=== PATIENT | male | born 1945 | race Caucasian/White ===

== ENCOUNTER 2020-11-29 18:15 | Emergency (ER) | payer MEDICARE, OTHER ==
[~2020-11-29] VITALS: Ht 175.3 cm; Wt 99.4 kg
--- NOTE | 2020-11-29 19:23 | PHYS DOC ---
Past History Past Medical History: CHF, Renal Failure Past Surgical History: Other Alcohol Use: None Adult General Chief Complaint Chief Complaint: MECHANICAL FALL HPI HPI Patient is a 75-year-old male with a past medical history significant for renal failure and right-sided renal transplant with 1 kidney, CAD, diabetes and is wheelchair-bound who presents to the emergency department with a chief complaint of fall from his wheelchair. States he was leaning forward this morning at about 8 AM to pick something up and fell forward out of his wheelchair on his left side. Complains of left sided chest wall pain, 6 out of 10, sharp in nature and left flank pain about the same. States he has some various sites of bruising along his arm and on his back but usually has bruising as he bruises easily. Denies any headache, changes in vision, neck pain, chest pain, shortness of breath, nausea, vomiting, dysuria, hematuria, blood in the stool. States he is able to stand, which is his baseline and walk short distances with help. Review of Systems Review of Systems Review of systems otherwise unremarkable except noted in HPI Allergies Allergies Allergies Coded Allergies Type Severity Reaction Last Updated Verified No Known Drug Allergies 11/29/20 No Physical Exam Physical Exam Constitutional: Well developed, well nourished, no acute distress, non-toxic appearance. [] HENT: Normocephalic, atraumatic, oropharynx moist, Eyes: PERRLA, EOMI, conjunctiva normal, no discharge. [] Neck: Normal range of motion, no tenderness, supple, no stridor. [] Cardiovascular: Sinus bradycardia Lungs & Thorax: Bilateral breath sounds clear to auscultation [] Abdomen: soft, left upper quadrant tenderness, no masses, no pulsatile masses. [] Skin: Warm, dry, bruising/contusions in multiple areas including left forearm, right forearm, bilateral hands, left mid back Back: No tenderness, no CVA tenderness. [] Extremities: Patient has bilateral lower extremity edema Neurologic: Alert and oriented X 3, normal motor function, normal sensory function, no focal deficits noted. [] Psychologic: Affect normal, judgement normal, mood normal. [] Current Patient Data Vital Signs Vital Signs Date Time Temp Pulse Resp B/P (MAP) Pulse Ox O2 Delivery O2 Flow Rate FiO2 11/29/20 19:06 97.7 56 16 163/49 (87) 95 Room Air EKG EKG [] Radiology/Procedures Radiology/Procedures [] FINDINGS: No focal parenchymal lesion or hemorrhage is identified. There is no midline shift or sulcal effacement. No acute vascular territory infarction is identified. Eng-white distinction is preserved. The ventricular system is within normal limits without compression hydrocephalus. The basal cisterns are well maintained. The visualized portions of the paranasal sinuses and mastoid air cells are well- pneumatized. No acute fractures. IMPRESSION: No acute intracranial abnormality. Electronically signed by: Mino Fagan MD (11/29/2020 8:05 PM) [facility] Rashid Chest: No evidence for major vascular injury on this unenhanced exam. Multifocal calcific atherosclerosis with coronary artery involvement. Left chest wall Port-A-Cath terminating at the upper right atrium. No enlarged mediastinal or hilar lymph nodes. No retrosternal hematoma or pericardial effusion. No pneumothorax or pleural effusion. No suspicious pulmonary nodule. Patent central airways. AV fistula partially imaged on the right upper extremity. Gynecomastia. No axillary adenopathy. Acute nondisplaced fractures of the left 9th and 10th ribs. Intact sternum. No acute fracture of the thoracic spine. Intact dorsal fusion construct spanning T10-T11. CT Abdomen/Pelvis: No acute abnormality of the liver or spleen. Mild enlargement of the spleen at 1 4.6 cm AP. Fatty infiltration of the pancreas. No adrenal gland mass. Haziness along the gallbladder wall favored on account of motion. Nondilated biliary tree. Atrophic [place] kidneys. Right lower quadrant transplant kidney with perinephric edema mild caliectasis. The urinary bladder is unremarkable. Colonic diverticulosis without diverticulitis. Normal appendix. Nonobstructed sm all bowel. Poorly evaluated stomach on account of underdistention. Mildly prominent retroperitoneal lymph nodes on images 146 and 160 series 3 but not meeting pathologic criteria based on size. No free fluid or pneumoperitoneum. No acute lumbar spine or pelvic fracture. Scattered degenerative changes. IMPRESSION: CT Chest/abdomen/pelvis: 1. Acute, nondisplaced left 9th and 10th rib fractures. No additional sequela trauma. 2. Right lower quadrant renal transplant with perinephric edema. This could be a manifestation of renal dysfunction though consider correlation with urinalysis to exclude an ascending urinary tract infection. 3. Numerous chronic findings detailed in the body the report. Electronically signed by: SHIRA HANKINS MD (11/29/2020 8:19 PM) [facility] Heart Score C/O Chest Pain: No Risk Factors: Risk Factors: DM, Current or recent (<one month) smoker, HTN, HLP, family history of CAD, obesity. Risk Scores: Risk Factors: DM, Current or recent (<one month) smoker, HTN, HLP, family history of CAD, obesity. Course & Med Decision Making Course & Med Decision Making Patient is a 75-year-old male who presents with a chief complaint of fall from wheelchair on warfarin Vital signs notable for hypertension and bradycardia. Physical exam noted above. Patient INR obtained yesterday afternoon 2.9. Imaging notable for acute nondisplaced left ninth and 10th rib fractures with no pneumothorax, no hemothorax, no pleural effusion and patent central airways. Patient pain controlled. Discussed all findings with family and advised on pain regimen at home, and advised to call their primary care physician first thing in the morning to set up a follow-up when they get home to [place] within the next week. Gave strict return precautions and a safety plan for home to avoid falling and worsening his injuries. Family grateful, verbalized understanding and agreed with plan of discharge. Dragon Disclaimer Dragon Disclaimer This electronic medical record was generated, in whole or in part, using a voice recognition dictation system. Departure Departure: Disposition: HOME / SELF CARE / HOMELESS Condition: GOOD Referrals: NON,STAFF (PCP) Patient Instructions: Rib Fracture Additional Instructions: Please read all of the attached information very carefully. As discussed, please use the pain medicine as prescribed over the next several days as rib fractures can cause pain and shallow breathing which can cause pneumonia. As discussed, please do breathing exercises at least 3 times a day taking several deep breaths over a few minutes to keep the airways open and avoid pneumonia. Please call your primary care physician in [place] first thing in the morning to set up a follow-up visit in the next week to 10 days when you get home. Please come back to the emergency department immediately with new or concerning symptoms as discussed. Scripts Hydrocodone Bit/Acetaminophen (HYDROCODONE-APAP 5-325 ) 1 Each Tablet 1 TAB PO PRN Q6HRS PRN for PAIN for 7 Days, #28 TAB 0 Refills Prov: AARON VICENTE MD 11/29/20 AARON VICENTE MD November 29, 2020 19:23
[2020-11-29] MEDS: oxyCODONE/APAP 5/325 1 TAB TABLET PO ONE ×2 (19:35→20:59)
--- NOTE | 2020-11-29 20:07 | RAD ---
Exam: CT head INDICATION: Fall on warfarin TECHNIQUE: Sequential axial images through the head were obtained without the administration of IV co ntrast. Exposure: One or more of the following in the visualized dose reduction techniques were utilized for this examination: 1. Automated exposure control 2. Adjustment of the MA and/or KV according to patient size 3. Use of iterative of reconstructive technique Comparisons: None FINDINGS: No focal parenchymal lesion or hemorrhage is identified. There is no midline shift or sulcal effaceme nt. No acute vascular territory infarction is identified. Eng-white distinction is preserved. The ventricular system is within normal limits without compression hydrocephalus. The basal cisterns are well maintained. The visualized portions of the paranasal sinuses and mastoid air cells are well-pneumatized. No acute fractures. IMPRESSION: No acute intracranial abnormality. Electronically signed by: Mino Fagan MD (11/29/2020 8:05 PM) [facility]
--- NOTE | 2020-11-29 20:21 | RAD ---
Study: CT chest, abdomen and pelvis without contrast INDICATION: Fall. Left-sided chest and abdominal pain. COMPARISON: None. TECHNIQUE: Helical CT imaging performed of the chest, abdomen and pelvis without the use of intraveno us contrast. Coronal and sagittal reformats were obtained. One or more of the following individualized dose reduction techniques were utilized for this examinat ion: 1. Automated exposure control 2. Adjustment of the mA and/or kV according to patient size 3. Use of iterative reconstruction technique. FINDINGS: CT Chest: No evidence for major vascular injury on this unenhanced exam. Multifocal calcific atherosclerosis wi th coronary artery involvement. Left chest wall Port-A-Cath terminating at the upper right atrium. No enlarged mediastinal or hilar lymph nodes. No retrosternal hematoma or pericardial effusion. No pneumothorax or pleural effusion. No suspicious pulmonary nodule. Patent central airways. AV fistula partially imaged on the right upper extremity. Gynecomastia. No axillary adenopathy. Acute nondisplaced fractures of the left 9th and 10th ribs. Intact sternum. No acute fracture of the thoracic spine. Intact dorsal fusion construct spanning T10-T11. CT Abdomen/Pelvis: No acute abnormality of the liver or spleen. Mild enlargement of the spleen at 14.6 cm AP. Fatty infi ltration of the pancreas. No adrenal gland mass. Haziness along the gallbladder wall favored on accou nt of motion. Nondilated biliary tree. Atrophic [place] kidneys. Right lower quadrant transplant kidne y with perinephric edema mild caliectasis. The urinary bladder is unremarkable. Colonic diverticulosis without diverticulitis. Normal appendix. Nonobstructed small bowel. Poorly kobi luated stomach on account of underdistention. Mildly prominent retroperitoneal lymph nodes on images 146 and 160 series 3 but not meeting pathologi c criteria based on size. No free fluid or pneumoperitoneum. No acute lumbar spine or pelvic fracture . Scattered degenerative changes. IMPRESSION: CT Chest/abdomen/pelvis: 1. Acute, nondisplaced left 9th and 10th rib fractures. No additional sequela trauma. 2. Right lower quadrant renal transplant with perinephric edema. This could be a manifestation of re nal dysfunction though consider correlation with urinalysis to exclude an ascending urinary tract inf ection. 3. Numerous chronic findings detailed in the body the report. Electronically signed by: SHIRA HANKINS MD (11/29/2020 8:19 PM) [facility]
[2020-11-29] MEDS ORDERED: HYDR-2155 PO (20:50)
[2020-11-29 21:00] VITALS: BP 148/70
== END 2020-11-29 21:00 | disposition home or self-care (01) ==
LOC: ER 18:15
DX: S50.12XA Contusion of left forearm, initial encounter (principal); S50.11XA Contusion of right forearm, initial encounter; S60.222A Contusion of left hand, initial encounter; S60.221A Contusion of right hand, initial encounter; S30.0XXA Contusion of lower back and pelvis, initial encounter; R07.89 Other chest pain; R60.0 Localized edema; I50.9 Heart failure, unspecified; E11.22 Type 2 diabetes mellitus with diabetic chronic kidney disease; N19 Unspecified kidney failure; Z94.0 Kidney transplant status; W05.0XXA Fall from non-moving wheelchair, initial encounter; Y93.89 Activity, other specified; Y92.89 Other specified places as the place of occurrence of the external cause; Y99.8 Other external cause status
CPT/HCPCS: 70450; 71250; 74176; 99285